=== PATIENT | male | born 1940 | race Caucasian/White ===

== ENCOUNTER 2020-01-15 12:12 | Outpatient (REF) | payer MEDICARE, OTHER, SELFPAY ==
[2020-01-15 13:57] LABS: Syphilis Screen Nonreactive (Nonreactive)
[2020-01-15 14:03] LABS: Vitamin B12 391 pg/mL (200-900)
[2020-01-18 03:36] LABS: Lyme Abs Screen <0.90 index
== END 2020-01-15 12:13 | disposition home or self-care (01) ==
LOC: HO.LAB 12:12
PROVIDERS: Visit Provider Psychiatry & Neurology Neurology
DX: Z11.3 Encounter for screening for infections with a predominantly sexual mode of transmission (principal); Z01.84 Encounter for antibody response examination; G20 Parkinson's disease
CPT/HCPCS: 82607; 86618; 86780